=== PATIENT | female | born 2000 | race Caucasian/White ===

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

== ENCOUNTER 2021-07-03 10:50 | Emergency (ER) | payer OTHER, SELFPAY ==
[2021-07-03 12:40] VITALS: BP 142/88; PULSE 78; RESP 18; TEMP 36.8; O2SAT 98; BMI 25.8
--- NOTE | 2021-07-03 13:28 | HMH.EDUTC ---
[facility] Clinical Impression: Viral syndrome Disposition: Home, Self-Care Condition on Discharge: Good Instructions: Diarrhea, Nausea and Vomiting-Adult, Ondansetron Additional Instructions: Drink extra fluids with and between meals. If you have difficulty drinking, try very small amounts of water or suck on ice chips. ? Avoid fruit juices, as these do not replace minerals and can actually increase diarrhea. ? Children and adults can use sports drinks to replenish electrolytes. Younger children and infants should use products formulated for children, like oral rehydration solutions. ? Eat food in small amounts and let your stomach recover. ? Get lots of rest. You may feel tired or weak. ? No greasy or fried foods for the next 24-48 hours BRAT diet Bananas Rice Apples and [place] ? Make sure to drink plenty of liquids ? Return if needed ? Straight to ER if any life threatening symptoms ? Zofran as prescribed ? You was given an outpatient order for diarrhea panel, please collect specimen and bring back to outpatient lab then call back to the [facility] or follow up with family doctor for results ? Follow up with family doctor in the next 48-72 hours if no improvement or any worsening of symptoms Prescriptions: Ondansetron [Zofran 4mg ODT] 4 mg PO TIDP PRN #20 tab PRN Reason: Nausea Transmission Status: Pending to [id number] Referrals: Omar Chua [Primary Care Provider] - As needed Forms: Work/School Release Time of Disposition: 13:40 Medical Decision Making - George Inquiry Pt receiving controlled substance: No George was queried for this patient: No Vital Signs: 07/03/21 12:40 Temperature 98.3 F Temperature Source Oral Pulse Rate [Right Brachial] 78 Respiratory Rate 18 Blood Pressure [Right Arm] 142/88 H Blood Pressure Mean [Right Arm] 106 Blood Pressure Source [Right Arm] Automatic Cuff Blood Pressure Position [Right Arm] Sitting 02 Sat by Pulse Oximetry 98 Oxygen Delivery Method Room Air [facility] HPI - General Stated complaint: sore throat, vomiting Time Seen by Provider: 07/03/21 13:28 Mode of Arrival: Ambulatory Source of Information: Patient Limitations: No Limitations Description of Symptoms (Recalled from Triage Doc. by RN): PATIENT C/O VOMITING AND DIARRHEA THAT STARTED LAST NIGHT HEENT Symptoms (Recalled from RN notes): No Resp Symptoms (Recalled from RN notes): No Skin Symptoms (Recalled from RN notes): No MS Symptoms (Recalled from RN notes): No Functional Status (Recalled from RN notes): WNL - History of Present Illness Provider Complaint: Patient states that she has been having upset stomach, vomiting and diarrhea since last night State that she thinks she may have eaten something because her has been having similar symptoms States that she was still feeling bad so she came in to get checked - Related Data Previous Rx's Medication Instructions Recorded Ondansetron [Zofran 4mg ODT] 4 mg PO TIDP PRN #20 tab 07/03/21 Allergies Allergy/AdvReac Type Severity Reaction Status Date / Time No Known Allergies Allergy Verified 03/15/20 10:36 - Worker's Comp Is this a Worker's Comp case?: No [facility] History - Hepatitis A Screen Drug use history?: No High risk sexual behaviors?: No History of sexually transmitted infection?: No Currently employed?: No Childcare worker?: No Do you have indoor plumbing?: Yes Do you have electricity?: Yes Attestation statement:: This patient has been screened for Hepatitis A risk factors. I have reviewed the patient's past medical history: Yes Other Surgeries: Yes: No Previous Surgery. No: Amputation: No Fractures: No - Social History Smoking Status: Never smoker Alcohol Intake: never Substance Use Type: denies use Occupational Status: unemployed Family Hx:: Diabetes, Thyroid Disorder ROS Obtained: Yes All systems reviewed & no additional complaints, Yes Systems reviewed as appropriate & no additional co
[2021-07-03 13:43] VITALS: BP 142/88; PULSE 78; RESP 18; TEMP 36.8; O2SAT 98
== END 2021-07-03 13:52 | disposition home or self-care (01) ==
PROVIDERS: Emergency Provider Nurse Practitioner; PCP Pediatrics
DX: B34.9 Viral infection, unspecified (principal); R11.10 Vomiting, unspecified
CPT/HCPCS: 99202; G0463

== ENCOUNTER 2022-08-19 21:06 | Emergency (ER) | payer OTHER, SELFPAY ==
[2022-08-19 21:08] VITALS: BP 132/92; PULSE 129; RESP 16; TEMP 37.4; O2SAT 95; BMI 36.6
--- NOTE | 2022-08-19 21:58 | CT_ITS ---
PROCEDURE INFORMATION: Exam: CT Abdomen And Pelvis With Contrast Exam date and time: 08/19/2022 11:49 PM Age: 22 years old Clinical indication: Abdominal pain; Localized; Left; Additional info: Abd pain TECHNIQUE: Imaging protocol: Computed tomography of the abdomen and pelvis with contrast. Radiation optimization: All CT scans at this facility use at least one of these dose optimization techniques: automated exposure control; mA and/or kV adjustment per patient size (includes targeted exams where dose is matched to clinical indication); or iterative reconstruction. Contrast material: ISOVUE; Contrast volume: 75 ml; Contrast route: IV; Other protocol: This patient has received 0 known CTs and 0 known cardiac nuclear medicine studies in the 12 months prior to the current study. COMPARISON: US OB /MATERNAL DETAIL 06/24/2019 1:16 PM FINDINGS: Liver: Normal. No mass. Gallbladder and bile ducts: Normal. No calcified stones. No ductal dilation. Pancreas: Normal. No ductal dilation. Spleen: Normal. No splenomegaly. Adrenal glands: Normal. No mass. Kidneys and ureters: Normal. No hydronephrosis. Stomach and bowel: Mild enhancement of the wall of the sigmoid colon with scattered fluid in the remainder of the colon and these findings may indicate low-grade colitis. No obstruction. No mucosal thickening. Appendix: No evidence of appendicitis. Intraperitoneal space: Unremarkable. No free air. No significant fluid collection. Vasculature: Unremarkable. No abdominal aortic aneurysm. Lymph nodes: Unremarkable. No enlarged lymph nodes. Urinary bladder: Unremarkable as visualized. Reproductive: IUD. Bones/joints: Unremarkable. No acute fracture. Soft tissues: Unremarkable. IMPRESSION: Low-grade colitis and mild diarrhea. Correlate clinically. No additional acute findings in the abdomen pelvis
[2022-08-19 22:01] VITALS: BP 134/61; PULSE 127; O2SAT 98
[2022-08-19 22:09] LABS: Basophils % 0.3 % (0.1-2.0); Eosinophils # 0.1 K/mm3 (0.0-0.4); Eosinophils % 0.7 % (0.1-12.0); Hematocrit 46.9 % (37.0-47.0); Lymphocytes # 0.6 K/mm3 (0.7-4.5); Lymphocytes % 3.7 % (10-50); Mean Corpuscular Hemoglobin 29.7 pg (27.0-31.2); Mean Corpuscular Volume 87.2 fl (81-99); Mean Platelet Volume 7.9 fl (7.4-10.4); Monocytes # 0.6 K/mm3 (0.1-1.0); Monocytes % 4.1 % (1.7-9.3); Neutrophils # 13.4 K/mm3 (1.8-7.8); Neutrophils % 91.2 % (37.0-80.0); Platelet Count 276 K/mm3 (142-424); Red Blood Count 5.37 M/mm3 (4.20-5.40); Red Cell Distribution Width 12.8 % (11.5-17.5); White Blood Count 14.7 K/mm3 (4.8-10.8)
[2022-08-19 22:15] LABS: Alanine Aminotransferase 48 U/L (12-78); Albumin Level 4.8 g/dl (3.5-5.0); Albumin/Globulin Ratio 1.4 (1.1-1.8); Alkaline Phosphatase 86 U/L (38-126); Amylase 67 U/L (30-110); Anion Gap 11.9 mEq/L (5-15); Aspartate Amino Transferase 34 U/L (14-36); Bilirubin,Total 0.6 mg/dl (0.2-1.3); Blood Urea Nitrogen 16 mg/dl (7-17); Calcium 9.1 mg/dl (8.4-10.2); Carbon Dioxide 28 mmol/L (22.0-30.0); Chloride 104 mmol/L (98-107); Creatinine Clearance Estimated 174 mL/min (50-200); Estimated Glomerular Filt Rate 90 ml/min (>60); GFR (African American) 109 ML/MIN (>60); Globulin 3.4 g/dL (1.3-3.2); Glucose 144 mg/dl (74-100); Lipase 50 U/L (23-300); Potassium 3.9 mmoL/L (3.5-5.1); Sodium 140 mmol/L (136-145); Total Protein,Serum 8.2 g/dl (6.3-8.2)
[2022-08-19 22:17] LABS: Lactic Acid 2.7 mmol/L (0.7-2.1)
[2022-08-19 22:22] LABS: MANUAL DIFFERENTIAL MANUAL DIFFERENTIAL (MANUAL DIFF)
[2022-08-19 22:30] VITALS: BP 140/81; PULSE 124; O2SAT 99
[2022-08-19 23:00] VITALS: BP 130/89; PULSE 119; O2SAT 100
[2022-08-19 23:15] LABS: Lymphocytes % 3 % (10-50); Monocytes % 1 % (2-9); Neutrophils % 96 % (42-76); Total Cells Counted 100
[2022-08-19 23:16] LABS: Platelet Estimate Normal; RBC Morphology Normal
--- NOTE | 2022-08-19 23:21 | HMH.EDNVD ---
Discharge Plan Disposition Patient Disposition: Home, Self-Care Prescriptions Prescriptions: New ondansetron HCl 4 mg Tablet 4 mg PO Q8H PRN (Reason: Nausea) Qty: 20 0RF No Action ondansetron 4 MG tablet,disintegrating 4 mg PO TIDP PRN (Reason: Nausea) Qty: 20 0RF Referrals Follow up/Referrals: Bryan Starkey MD [Primary Care Provider] - See instructions Clinical Impressions Clinical Impression: Colitis Instructions Patient Instructions: DI for Diarrhea and Traveler's Diarrhea -- Adult, DI for Nausea -- Adult Discharge ED Provider: Misha (ED)Jaun Nausea/Vomiting/Diarrhea HPI General Chief complaint: Nausea/Vomiting/Diarrhea Stated complaint: V&D,Abd Pain Time Seen by Provider: 08/19/22 23:21 Mode of Arrival: Ambulatory Source of Information: Patient, Spouse and Medical Record Limitations: No Limitations Description of Symptoms (Recalled from ER Triage Doc. by RN): pt C/o N/V/D for few hrs. pt states she has not been able to keep anything down History of Present Illness HPI Narrative: vomiting and diarrhea w/o fever or blood and no known contact mary lou TAYLOR complaint: vomiting, diarrhea and abdominal pain Onset (ago): hour(s) Associated Abdominal Pain: Yes Location of pain: diffuse Severity: moderate Quality: cramping Consistency: intermittent Related Data Previous Rx's Medication Instructions Recorded ondansetron 4 mg disintegrating 4 mg PO TIDP PRN Nausea #20 tabs 07/03/21 tablet ondansetron HCl 4 mg tablet 4 mg PO Q8H PRN Nausea #20 tabs 08/20/22 Allergies Allergy/AdvReac Type Severity Reaction Status Date / Time No Known Allergies Allergy Verified 03/15/20 10:[address] [facility] Disclaimer: The information contained in this section may have been updated after the patient was seen, as this information can be updated by other users. Social History Smoking Status: Never smoker alcohol intake: never substance use type: denies use current occupational status: unemployed Travel in the last 8 weeks: None ROS Obtained: Yes All systems reviewed & no additional complaints except as documented Physical Exam General General appearance: alert Head Head exam: normocephalic Eye Eye exam: Present PERRL and EOMI; Absent jaundice ENT ENT exam: Present mucous membranes moist Neck Neck exam: Present trachea midline Respiratory Respiratory exam: Absent respiratory distress Cardiovascular Cardiovascular exam: Present regular rate Abdominal Exam Abdominal exam: Present soft and tenderness; Absent guarding or rebound Abdominal tenderness: Present diffuse and mild Extremities Exam Extremities exam: Present full ROM Neurological Exam Neurological exam: Present alert, oriented X3 and CN II-XII intact; Absent motor sensory deficit Skin Skin exam: Absent rash Medical Decision Making Medical Records Medical records reviewed: Yes I reviewed the patient's medical records. George Inquiry Pt receiving controlled substance: No Vital Signs: 08/19/22 21:08 08/19/22 22:01 08/19/22 22:30 Temperature 99.4 F Temperature Source Oral Pulse Rate 127 H 124 H Pulse Rate [Left] 129 H Respiratory Rate 16 Blood Pressure 134/61 140/81 Blood Pressure [Right Arm] 132/92 H Blood Pressure Mean [Right Arm] 105 02 Sat by Pulse Oximetry 95 98 99 Oxygen Delivery Method Room Air Room Air Room Air 08/19/22 23:00 08/20/22 00:01 Temperature Temperature Source Pulse Rate 119 H 108 H Pulse Rate [Left] Respiratory Rate Blood Pressure 130/89 114/82 Blood Pressure [Right Arm] Blood Pressure Mean [Right Arm] 02 Sat by Pulse Oximetry 100 97 Oxygen Delivery Method Room Air Lab Data Lab results reviewed: Yes I reviewed the patient's lab results. Lab Results 08/19/22 21:50: WBC 14.7 H, RBC 5.37, Hgb 16.0, Hct 46.9, MCV 87.2, MCH 29.7, MCHC 34.0, RDW 12.8, Plt Count 276, MPV 7.9, Neut % (Auto) 91.2 H, Lymph % (Auto) 3.7 L, [place] % (Auto) 4.1, Eos % (Au
[2022-08-19 23:33] LABS: HCG Qualitative, Serum Negative (Negative)
[2022-08-19 23:39] LABS: Microscopic, Urine URINE MICROSCOPIC (MICROSCOPIC)
[2022-08-19 23:41] LABS: Appearance,Urine CLEAR (Clear); Blood, Urine Negative (Negative); Color,Urine YELLOW (Yellow); Glucose,Urine (UA) Negative (Negative); Ketones,Urine TRACE (Negative); Leukocyte Esterase,Urine 1+ (Negative); Nitrate,Urine Negative (Negative); PH,Urine 5.5 (5.0-8.5); Protein,Urine Negative (Negative); Specific Gravity, Urine >= 1.030 (1.005-1.030); Urobilinogen,Urine 0.2 EU/dl (0.2)
[2022-08-19 23:41] LABS: Coronavirus 19, PCR Not Detected (NotDetected); Influenza A, PCR Not Detected (NotDetected); Influenza B, PCR Not Detected (NotDetected)
[2022-08-19 23:42] LABS: Bilirubin,Urine 1+ (Negative)
[2022-08-19 23:43] LABS: Urine Pregnancy, HCG Qual. Negative (Negative)
--- NOTE | 2022-08-19 23:44 | PC.NURSE ---
pt out of room for CT at this time.
--- NOTE | 2022-08-19 23:46 | PC.NURSE ---
pt ambulated to restroom and provided UA. Pt returned from bathroom and went over to CT.
[2022-08-19 23:53] LABS: Bacteria,Urine 1+ /lpf
--- NOTE | 2022-08-19 23:53 | PC.NURSE ---
pt back in room at this time
[2022-08-20 00:01] VITALS: BP 114/82; PULSE 108; O2SAT 97
[2022-08-20 00:30] VITALS: BP 134/78; PULSE 104; O2SAT 97
[2022-08-20 01:22] VITALS: BP 137/78; PULSE 104; RESP 18; TEMP 37.1; O2SAT 100
== END 2022-08-20 01:22 | disposition home or self-care (01) ==
PROVIDERS: Emergency Provider Emergency Medicine; PCP Family Medicine
DX: K52.9 Noninfective gastroenteritis and colitis, unspecified (principal); Z20.822 Contact with and (suspected) exposure to COVID-19
CPT/HCPCS: 74177; 80053; 81001; 81025; 82150; 83605; 83690; 84703; 85007; 85025; 87086; 96361; 96374; 99285; C9803; J2405; Q9967; U0003; U0005

== ENCOUNTER 2023-05-30 11:16 | Emergency (ER) | payer OTHER, SELFPAY ==
[2023-05-30 11:25] VITALS: BP 127/72; PULSE 86; RESP 18; TEMP 37.2; O2SAT 98; BMI 34.0
--- NOTE | 2023-05-30 11:44 | EXP.UTC ---
Discharge Plan Disposition Patient Disposition: Home, Self-Care Condition: Good Prescriptions Prescriptions: New ondansetron 4 mg tablet,disintegrating 4 mg PO Q8H PRN (Reason: nausea and vomiting) Qty: 10 0RF Referrals Follow up/Referrals: Bryan Starkey MD [Primary Care Provider] - See instructions Activity Restrictions/Add. Instructions Additional Instructions/Restrictions: You was given outpatient order for diarrhea panel collect and bring back to the lab, this test takes about 3-5 days make appointment with your Family Doctor to discuss results if they dont get the results they can file a request the results [place] diet make sure to eat foods like bananas, rice applesauce, dry toast that is easy on the stomach avoid anything greasy, fried or spicy and sugary drinks and foods Return if needed Make sure that you are drinking plenty of fluids to help stay hydrated Straight to ER if any life threatening symptoms Clinical Impressions Clinical Impression: Diarrhea Qualifiers: Diarrhea type: unspecified type Qualified Code(s): R19.7 - Diarrhea, unspecified Instructions Patient Instructions: Diarrhea, DI for Colitis Discharge ED Provider: Chaya Bernstein [facility] General Stated complaint: nausea, diarrhea Mode of Arrival: Ambulatory Source of Information: Patient Limitations: No Limitations Time Seen by Provider: 05/30/23 11:44 Description of Symptoms (Recalled from Triage Doc. by RN): PATIENT C/O NAUSEA AND DIARRHEA X 2 WEEKS HEENT Symptoms (Recalled from RN notes): No Resp Symptoms (Recalled from RN notes): No Skin Symptoms (Recalled from RN notes): No MS Symptoms (Recalled from RN notes): No Functional Status (Recalled from RN notes): WNL History of Present Illness Provider Complaint: Patient states that for the last 2 weeks she has been having nausea and diarrhea on and off States that this morning is the only time she has vomited States that she has still been eating and drinking ok just her stomach feels upset Denies pain denies fever Related Data Previous Rx's Medication Instructions Recorded ondansetron 4 mg disintegrating 4 mg PO Q8H PRN nausea and 05/30/23 tablet vomiting #10 tabs Allergies Allergy/AdvReac Type Severity Reaction Status Date / Time No Known Allergies Allergy Verified 03/15/20 10:36 Worker's Comp Is this a Worker's Comp case?: No [facility] Disclaimer: The information contained in this section may have been updated after the patient was seen, as this information can be updated by other users. Social History Smoking Status: Never smoker alcohol intake: never substance use type: denies use current occupational status: unemployed Travel in the last 8 weeks: None ROS Obtained: Yes All systems reviewed & no additional complaints except as documented and Yes Systems reviewed as appropriate & no additional complaints except as documented Constitutional Constitutional: Reports system reviewed and no additional complaints, except as documented, Reports as per HPI, Denies body ache, Denies chills, Denies fever(s) and Denies headache(s) ENT Ears, Nose, Mouth, and Throat: Reports system reviewed and no additional complaints, except as documented, Reports as per HPI and Denies headache(s) Cardiovascular Cardiovascular: Reports system reviewed and no additional complaints, except as documented and Reports as per HPI Respiratory Respiratory: Reports system reviewed and no additional complaints, except as documented and Reports as per HPI Gastrointestinal Gastrointestingal: Reports system reviewed and no additional complaints, except as documented, as per HPI, diarrhea, nausea and vomiting (once this morning); Denies abdominal pain Genitourinary Female Genitourinary: Reports system reviewed and no additional complaints, except as documented and Reports as per HPI Neurologic Neurologic: Denies headache(s) Physical Exam General General appearance: alert and in no appa
[2023-05-30 11:46] LABS: UTC Pregnancy Test, Urine Negative (Negative)
[2023-05-30 12:10] VITALS: BP 127/72; PULSE 86; RESP 18; TEMP 37.2; O2SAT 98
== END 2023-05-30 12:16 | disposition home or self-care (01) ==
PROVIDERS: Emergency Provider Nurse Practitioner; PCP Family Medicine
DX: R19.7 Diarrhea, unspecified (principal); R11.0 Nausea
CPT/HCPCS: 81025; 99212; 99214; G0463

== ENCOUNTER → 2023-06-01 09:49 | Outpatient (CLI) | payer OTHER, SELFPAY ==
[2023-06-01 09:59] LABS: Adenovirus F 40/41, stool Not Detected (NotDetected); Astrovirus Not Detected (NotDetected); Campylobacter Not Detected (NotDetected); Clostridium Difficile A/B, PCR Not Detected (NotDetected); Cryptosporidium Not Detected (NotDetected); Cyclospora Cayetanesis Not Detected (NotDetected); Entamoeba histolytica Not Detected (NotDetected); Enteroaggregative E coli Not Detected (NotDetected); Enteropathogenic E coli Not Detected (NotDetected); Enterotoxigenic E coli Not Detected (NotDetected); Giardia lamblia Not Detected (NotDetected); Norovirus Not Detected (NotDetected); Plesimonas Shigalloides, PCR Not Detected (NotDetected); Rotavirus A Not Detected (NotDetected); Salmonella, PCR Not Detected (NotDetected); Shiga-like toxin E coli Not Detected (NotDetected); Shigella Enterovasive E coli Not Detected (NotDetected); Vibrio Cholerae Not Detected (NotDetected); Vibrio, PCR Not Detected (NotDetected); Yersinia Entercolitica, PCR Not Detected (NotDetected)
[2023-06-04 08:05] LABS: Sapovirus Not Detected (NotDetected)
== END ==
PROVIDERS: PCP Family Medicine; Visit Provider Nurse Practitioner
DX: R19.7 Diarrhea, unspecified (principal)
CPT/HCPCS: 87507

== ENCOUNTER → 2023-06-05 14:22 | Outpatient (CLI) | payer OTHER, SELFPAY ==
[2023-06-05 12:57] LABS: Basophils % 0.3 % (0.1-2.0); Eosinophils # 0.2 K/mm3 (0.0-0.4); Hematocrit 43.2 % (37.0-47.0); Hemoglobin 15.7 g/dL (12.2-16.2); Lymphocytes # 1.2 K/mm3 (0.7-4.5); Lymphocytes % 15.6 % (10-50); Mean Corpuscular HGB Conc 36.3 g/dL (31.8-35.4); Mean Corpuscular Hemoglobin 32.9 pg (27.0-31.2); Mean Corpuscular Volume 90.6 fl (81-99); Mean Platelet Volume 8.4 fl (7.4-10.4); Monocytes # 0.6 K/mm3 (0.1-1.0); Monocytes % 6.8 % (1.7-9.3); Neutrophils # 5.9 K/mm3 (1.8-7.8); Neutrophils % 74.2 % (37.0-80.0); Platelet Count 211 K/mm3 (142-424); Red Blood Count 4.77 M/mm3 (4.20-5.40); Red Cell Distribution Width 12.9 % (11.5-17.5)
[2023-06-05 13:32] LABS: Chloride 102 mmol/L (98-107); Sodium 139 mmol/L (136-145)
[2023-06-05 13:35] LABS: Alanine Aminotransferase 40 U/L (12-78); Amylase 50 U/L (30-110); Aspartate Amino Transferase 31 U/L (14-36); Blood Urea Nitrogen 12 mg/dl (7-17); Carbon Dioxide 28 mmol/L (22.0-30.0); Estimated Glomerular Filt Rate 89 ml/min (>60); GFR (African American) 108 ML/MIN (>60)
[2023-06-05 13:36] LABS: Albumin Level 4.8 g/dl (3.5-5.0); Albumin/Globulin Ratio 1.5 (1.1-1.8); Alkaline Phosphatase 81 U/L (38-126); Bilirubin,Total 0.5 mg/dl (0.2-1.3); Calcium 9.5 mg/dl (8.4-10.2); Globulin 3.1 g/dL (1.3-3.2); Glucose 89 mg/dl (74-100); Lipase 64 U/L (23-300); Total Protein,Serum 7.9 g/dl (6.3-8.2)
== END ==
PROVIDERS: PCP Internal Medicine; Visit Provider Nurse Practitioner Family
DX: R11.0 Nausea (principal); R19.7 Diarrhea, unspecified
CPT/HCPCS: 80053; 82150; 83690; 85025

== ENCOUNTER → 2023-06-17 08:58 | Outpatient (CLI) | payer OTHER, SELFPAY ==
--- NOTE | 2023-06-17 08:59 | US_ITS ---
FINAL REPORT CLINICAL HISTORY: nausea, vomiting, abd pain COMPARISON: None FINDINGS: Sonographic images of the right upper quadrant were obtained. The pancreas is partially obscured. There is fatty infiltration of the liver. No gallstones are visualized. However there is a trace amount of sludge present.There is no evidence of biliary ductal dilatation.The common duct measures 3 mm. Limited images of the right kidney are unremarkable. IMPRESSION: Fatty infiltration of the liver. Trace sludge in the gallbladder. Reviewed, Interpreted and Dictated by Layo Alcantara MD Transcribed by Lisa Rojas Authenticated and [facility]
== END ==
PROVIDERS: PCP Nurse Practitioner Family; Visit Provider Nurse Practitioner Family
DX: R11.0 Nausea (principal); R19.7 Diarrhea, unspecified
CPT/HCPCS: 76705

== ENCOUNTER → 2023-07-03 10:12 | Outpatient (CLI) | payer OTHER, SELFPAY ==
--- NOTE | 2023-07-03 10:12 | NM_ITS ---
FINAL REPORT CLINICAL HISTORY: Upper abdominal pain, nausea, diarrhea, sludge 10:23am 8.32 mci tc choletec 1.8 mcg of cck no pain during cck FINDINGS: The patient was injected with 8.32 mCi of technetium 99m Choletec and subsequently 1.8 mcg of CCK. Images of the abdomen were obtained for one hour. There is normal distribution of radiopharmaceutical throughout the liver. Sequential images demonstrate progressive accumulation of activity within the gallbladder. There is a calculated ejection fraction of 67%, within normal limits. IMPRESSION: Normal ejection fraction of 67%. Reviewed, Interpreted and Dictated by Layo Alcantara MD Transcribed by Paulina Krause Authenticated and [facility]
[2023-07-03] MEDS: SODIUM CHLORIDE 0.9% 10ML SYR (RAD ONLY) 10 ML IV (12:28)
[2023-07-03] MEDS: SINCALIDE 1.8 MCG in 0.9 % SODIUM CHLORIDE 50 ML 100 MCG IV (12:28)
[2023-07-03] MEDS: ISOTOPE CHOLETECH;1 DOSE (UP TO 15 MCI) IV (12:28)
== END ==
LOC: RAD 10:12
PROVIDERS: PCP Nurse Practitioner Family; Visit Provider Nurse Practitioner Family
DX: R10.10 Upper abdominal pain, unspecified (principal); R11.0 Nausea; R19.7 Diarrhea, unspecified
CPT/HCPCS: 78227; A9537; J2805

== ENCOUNTER 2023-07-10 09:51 | Outpatient (CLI) | payer OTHER, SELFPAY ==
[2023-07-12 15:30] LABS: H. pylori Breath Test Negative (Negative)
== END 2023-07-10 23:59 ==
LOC: LAB 09:53
PROVIDERS: PCP Nurse Practitioner Family; Visit Provider Nurse Practitioner Family
DX: R10.12 Left upper quadrant pain (principal); R11.0 Nausea
CPT/HCPCS: 83013